=== PATIENT | female | born 1980 | race Caucasian/White ===

== ENCOUNTER 2019-04-15 23:17 | Emergency (ER) | payer MEDICAID ==
--- NOTE | 2019-04-16 00:42 | EDM.PDOCBH ---
ED HPI GENERAL MEDICAL PROBLEM - General Chief Complaint: Drug or Alcohol Abuse Stated Complaint: ILLNESS Time Seen by Provider: 04/15/19 23:50 Source of Information: Reports: Patient, Family History Limitations: Reports: Altered Mental Status, Other (pt is very lethargic. ) - History of Present Illness Duration: Heavy Location: Reports: Generalized Associated Symptoms: Reports: Other (pt has been drinking and then she took her tradone 150mg. There has been a argument with her and the boyfriend. ) Denies Pain Score (Numeric/FACES): 0 - Related Data Allergies Allergy/AdvReac Type Severity Reaction Status Date / Time pentazocine [From [employer]] Allergy Cannot Verified 04/15/19 23:28 Remember prochlorperazine Allergy Cannot Verified 04/15/19 23:28 [From Compazine] Remember Home Meds: Home Meds Budesonide/Formoterol Fumarate [Symbicort 80-4.5 Mcg Inhaler] 1 puff IH DAILY [History] Montelukast Sodium [Singulair] 10 mg PO DAILY 04/15/19 [History] Omeprazole Magnesium [Prilosec Otc] 40 mg PO DAILY 04/15/19 [History] traZODone 150 mg PO DAILY 04/15/19 [History] Past Medical History HEENT History: Reports: Impaired Vision Respiratory History: Reports: Asthma [employer] History: Reports: , Spontaneous Psychiatric History: Reports: Anxiety, Depression - Past Surgical History GI Surgical History: Reports: Hernia, Abdominal Social & Family History - Tobacco Use Smoking Status *Q: Never Smoker Second Hand Smoke Exposure: No - Caffeine Use Caffeine Use: Reports: Coffee, Energy Drinks, Soda - Alcohol Use Days Per Week of Alcohol Use: 2 Number of Drinks Per Day: 3 Total Drinks Per Week: 6 - Recreational Drug Use Recreational Drug Use: No ED ROS GENERAL - Review of Systems Review Of Systems: See Below Constitutional: Reports: No Symptoms HEENT: Reports: No Symptoms Respiratory: Reports: No Symptoms Cardiovascular: Reports: No Symptoms Endocrine: Reports: No Symptoms GI/Abdominal: Reports: No Symptoms : Reports: No Symptoms Musculoskeletal: Reports: No Symptoms Skin: Reports: No Symptoms Neurological: Reports: Other (pt is very lethargic from the etoh and the trazadone. ) ED EXAM, BEHAVIORAL HEALTH - Physical Exam Exam: See Below Text/Narrative:: pt was able to answer some questions at first and now she is bearly arousable. She has a etoh of .129. She also has trazadone 150 mg onn board. Exam Limited By: No Limitations General Appearance: Alert, Other (pt was alert at first.) Ears: Normal TMs Nose: Normal Inspection Throat/Mouth: Normal Inspection Head: Atraumatic Neck: Normal Inspection Respiratory/Chest: No Respiratory Distress Cardiovascular: Regular Rate, Rhythm GI/Abdominal: Soft, Non-Tender (Female) Exam: Deferred Rectal (Female) Exam: Deferred Back Exam: Normal Inspection COURSE, BEHAVIORAL HEALTH COMP - Course Vital Signs: Last Vital Signs Temp 36.1 C 04/15/19 23:38 Pulse 109 H 04/15/19 23:38 Resp 16 04/15/19 23:38 BP 128/67 04/15/19 23:38 Pulse Ox 99 04/15/19 23:38 Orders, Labs, Meds: Laboratory Tests 04/16/19 04/16/19 04/16/19 Range/Units 00:45 00:45 00:45 WBC 4.8 (4.5-11.0) K/uL RBC 3.85 (3.30-5.50) M/uL Hgb 12.0 (12.0-15.0) g/dL Hct 36.3 (36.0-48.0) % MCV 94 (80-98) fL MCH 31 (27-31) pg MCHC 33 (32-36) % Plt Count 235 (150-400) K/uL Neut % (Auto) 65 (36-66) % Lymph % (Auto) 25 (24-44) % [place] % (Auto) 9 H (2-6) % Eos % (Auto) 0 L (2-4) % Baso % (Auto) 0 (0-1) % Sodium 141 (140-148) mmol/L Potassium 3.5 L (3.6-5.2) mmol/L Chloride 106 (100-108) mmol/L Carbon Dioxide 21 (21-32) mmol/L Anion Gap 17.5 H (5.0-14.0) mmol/L BUN 8 (7-18) mg/dL Creatinine 0.8 (0.6-1.0) mg/dL Est Cr Clr Drug Dosing 72.65 mL/min Estimated GFR (MDRD) > 60 (>60) Glucose 103 (74-106) mg/dL Calcium 8.2 L (8.5-10.1) mg/dL Total Bilirubin 0.2 (0.2-1.0) mg/dL AST 25 (15-37) U/L ALT 30 (12-78) U/L Alkaline Phosphatase 73 (46-116) U/L Total Protein 6.8 (6.4-8.2) g/dL Albumin 3.2 L (3.4-5.0) g/dL Globulin 3.6 H (2.3-3.5) g/dL Albumin/Globulin Ratio 0.9 L (1.2-2.2) Ethyl Alcohol 129 mg/dL Medications Discontinued Medications Generic Name Dose Route Start Last Admin Trade Name Freq PRN Reason Stop Dose Admin Hydrocodone Bitart/Acetaminophen 1 tab 04/16/19 01:28 Zephyr 325-5 Mg PO 04/16/19 01:29 ONETIME ONE Medical Clearance: 04/16/19 01:26 1:30 pt did look mildly dehydrated. He etoh was .129. Departure - Departure Time of Disposition: 01:26 Disposition: Home, Self-Care 01 Condition: Fair Clinical Impression: Intoxication, History of depression - Discharge Information Referrals: PCP,None [Primary Care Provider] - Forms: ED Department Discharge Care Plan Goals: push fluids, cont same meds.
[2019-04-16] MEDS ORDERED: Acetaminophen/HYDROcodone 325-5 MG Tab PO ONE (01:28)
== END 2019-04-16 02:06 | disposition home or self-care (01) ==
LOC: JP.ED 23:17
DX: F10.129 Alcohol abuse with intoxication, unspecified (principal); Y90.6 Blood alcohol level of 120-199 mg/100 ml; F32.9 Major depressive disorder, single episode, unspecified; Z88.6 Allergy status to analgesic agent; Z88.8 Allergy status to other drugs, medicaments and biological substances; Z79.899 Other long term (current) drug therapy
CPT/HCPCS: 36415; 80053; 85025; 99284; G0480